=== PATIENT | male | born 1960 | race Caucasian/White ===

== ENCOUNTER 2021-04-21 09:48 | Outpatient (CLI) | payer BC ==
[~2021-04-21] VITALS: Ht 175.3 cm; Wt 111.1 kg
[2021-04-21 10:08] VITALS: BP 159/90
[2021-04-21] MEDS ORDERED: BAMLANIVIMAB 700 MG/ETESEVIMAB 1,400 MG IN NS IV ONE ×3 (10:15)
[2021-04-21] MEDS ORDERED: diphenhydrAMINE 50 MG/ML INJ (BENADRYL) IV PRN (10:15)
[2021-04-21] MEDS ORDERED: ONDANSETRON 4 MG/2 ML (SDV) Z0FRAN IV PRN (10:15)
[2021-04-21] MEDS ORDERED: EPINEPHrine INJECTION 1 MG/ML AMP IM PRN (10:15)
[2021-04-21] MEDS ORDERED: ACETAMINOPHEN 500 MG TAB (TYLENOL) PO PRN (10:15)
[2021-04-21 10:53] VITALS: BP 139/91
== END 2021-04-21 11:40 | disposition home or self-care (01) ==
LOC: INFUSION 09:48
PROVIDERS: ATTEND Nurse Practitioner Family
DX: U07.1 COVID-19 (principal)

== ENCOUNTER → 2022-05-31 | Outpatient (CLI) | payer BC, OTHER ==
[~2022-05-31] VITALS: Ht 175.3 cm; Wt 108.9 kg
== END ==
LOC: DSME 12:49
PROVIDERS: ATTEND Nurse Practitioner Family
DX: E11.9 Type 2 diabetes mellitus without complications (principal); I10 Essential (primary) hypertension